=== PATIENT | male | born 1990 | race Caucasian/White ===

== ENCOUNTER 2020-03-28 06:03 | Outpatient (REF) | payer OTHER, SELFPAY | END 2020-03-28 06:04 | disposition home or self-care (01) | LOC: HO.LAB 06:03 | PROVIDERS: PCP Nurse Practitioner Family; Visit Provider Internal Medicine | DX: Z20.828 Contact with and (suspected) exposure to other viral communicable diseases (principal) | CPT/HCPCS: 87635 ==